=== PATIENT | male | born 1960 | race Caucasian/White ===

== ENCOUNTER → 2016-11-30 | Outpatient (CLI) | payer MEDICARE, MEDICAID ==
[~2016-11-30] MED LIST: AMBIEN10 MG PO; AMOXICILLIN500 M1 PO; ASPIRIN81 MG PO; ATIVAN1 MG PO; COUMADIN10 MG PO; CRESTOR40 MG PO; ELAVIL25 MG PO; FLEXERIL10 MG PO; GLUCOPHAGE500 MG PO; IMODIUM2 MG PO; MAALOX ADVANCE355 ML PO; MILK OF MA400 MG/5 M PO; PRILOSEC20 M1 PO; PRINIVIL20 MG PO; Q-TUSSIN100 MG/5 M PO; RULOX SUSPENSI355 ML; TYLENOL EXTRA500 MG PO; TYLENOL325 MG PO; ZOLOFT100 M1 PO
[2016-11-30 08:10] LABS: INR - (THERAPEUTIC) 2.2 (0.9-1.1); PROTIME 24.2 SECONDS (9.6-11.1)
== END | disposition disaster alternative care site (69) ==
PROVIDERS: Internal Medicine
DX: I63.9 Cerebral infarction, unspecified (principal)

== ENCOUNTER → 2016-12-22 | Outpatient (CLI) | payer MEDICARE, MEDICAID | END | disposition disaster alternative care site (69) | LOC: GAMB 07:55 | DX: I95.9 Hypotension, unspecified (principal); E11.9 Type 2 diabetes mellitus without complications; E78.5 Hyperlipidemia, unspecified; F32.9 Major depressive disorder, single episode, unspecified; I10 Essential (primary) hypertension; R61 Generalized hyperhidrosis; R40.20 Unspecified coma; R29.810 Facial weakness; R42 Dizziness and giddiness; R29.818 Other symptoms and signs involving the nervous system; Z86.73 Personal history of transient ischemic attack (TIA), and cerebral infarction without residual deficits; Z79.82 Long term (current) use of aspirin; Z79.899 Other long term (current) drug therapy | CPT/HCPCS: A0425; A0427; J7030 ==

== ENCOUNTER → 2016-12-27 | Outpatient (CLI) | payer MEDICARE, MEDICAID ==
[2016-12-27 09:16] LABS: INR - (THERAPEUTIC) 1.9 (0.9-1.1); PROTIME 20.6 SECONDS (9.6-11.1)
== END | disposition disaster alternative care site (69) ==
PROVIDERS: Internal Medicine
DX: I63.9 Cerebral infarction, unspecified (principal)

== ENCOUNTER → 2017-01-25 | Outpatient (CLI) | payer MEDICARE, MEDICAID ==
[2017-01-25 08:05] LABS: INR - (THERAPEUTIC) 2.27 (0.92-1.07)
== END ==
PROVIDERS: Internal Medicine
DX: I63.9 Cerebral infarction, unspecified (principal)

== ENCOUNTER → 2017-02-22 | Outpatient (CLI) | payer MEDICARE, MEDICAID ==
[2017-02-22 11:00] LABS: INR - (THERAPEUTIC) 3.13 (0.92-1.07); PROTIME 33.2 SECONDS (9.8-11.4)
== END | disposition disaster alternative care site (69) ==
PROVIDERS: Internal Medicine
DX: I63.9 Cerebral infarction, unspecified (principal)

== ENCOUNTER → 2017-03-22 | Outpatient (CLI) | payer MEDICARE, MEDICAID ==
[2017-03-22 08:46] LABS: INR - (THERAPEUTIC) 2.14 (0.92-1.07); PROTIME 22.6 SECONDS (9.8-11.4)
== END | disposition disaster alternative care site (69) ==
PROVIDERS: Internal Medicine
DX: I63.9 Cerebral infarction, unspecified (principal)

== ENCOUNTER → 2017-05-23 | Outpatient (CLI) | payer MEDICARE, MEDICAID ==
[2017-05-23 08:53] LABS: PROTIME 25.4 SECONDS (9.8-11.4)
[2017-05-23 08:55] LABS: INR - (THERAPEUTIC) 2.4 (0.92-1.07)
== END ==
PROVIDERS: Internal Medicine
DX: I63.9 Cerebral infarction, unspecified (principal)